=== PATIENT | female | born 1965 | race Caucasian/White ===

== ENCOUNTER 2017-01-28 05:50 | Day surgery (SDC) | payer MEDICAID ==
[2017-01-27 13:44] LABS: HEMATOCRIT 40.4 % (36.0-48.0); HEMOGLOBIN 13.8 g/dL (12-16); MCH 32.1 pg (26.0-34.0); MCHC 34.2 g/dL (31.0-37.0); MEAN PLATELET VOLUME 9.7 fL (7.4-10.4); RBC 4.3 10x6/uL (4.00-5.40); WBC 9.4 10x3/uL (4.8-10.8)
[~2017-01-28] VITALS: Ht 160 cm; Wt 77.1 kg
--- NOTE | ~2017-01-28 | OP ---
PATIENT NAME: LORETTA NICHOLSON MEDICAL RECORD: [id number] :61 LOCATION:D.OPS ADMISSION DATE: SURGEON: ANGI DIAZ MD DATE OF OPERATION: 01/28/2017 PREOPERATIVE DIAGNOSIS: Left dorsal ganglion cyst. POSTOPERATIVE DIAGNOSIS: Left dorsal ganglion cyst. PROCEDURE PERFORMED: Left dorsal ganglion cyst excision. SURGEON: Semaj Diaz MD ANESTHESIA: TIVA with local. Specimen was sent to pathology. CONDITION: The patient tolerated the procedure well, was transferred to the recovery room in stable condition. INDICATIONS: This is a 51-year-old female with a very prominent large dorsal ganglion cyst. This has gotten to the juncture where it has gotten so big and it has become painful and unsightly. She wanted to have it removed. We discussed risks, benefits, and alternatives. She understood and wished to proceed, specifically discussing recurrence, nerve, artery and vein injuries and tendon injuries. OPERATIVE REPORT: The patient was taken to the operating room and placed in supine position. TIVA anesthesia was obtained. Left upper extremity was prepped and draped in the normal fashion. After this was accomplished, her left wrist was confirmed to be the correct site. She received Ancef per protocol. I made a transverse incision over the cyst. This was taken down. Circumferential dissection was made following it down to the tail and also avoiding the extensor tendons. I was able to get it out nearly in its entirety ____ tail as it headed down into the wrist joint. I then copiously irrigated. Specimen was sent to pathology. I then closed with 2-0 Vicryl, then 3-0 Prolene, placed in a volar splint. She was awakened and transferred to the recovery room in stable condition having tolerated the procedure well. TRANSINT:[id number] Voice Confirmation ID: [id number] DOCUMENT ID: [id number] ANGI DIAZ MD CC: [id number] DICTATION DATE: 01/28/17928 NET C DEVELOPER: 01/28/17 1320 [facility] 01/28/17 [facility] [address] [place] [address]
[~2017-01-28 05:50] MED LIST: ASPIRIN325 MG PO; CELEXA40 MG PO; COREG6.25 MG PO; HYDROCODON-ACE1 EAC7 PO; ISOSORBIDE MONO30 M1 PO; LIPITOR40 MG PO; LISINOPRIL2.5 MG PO; NITROSTAT0.4 MG SL
[2017-01-28 06:36] VITALS: BP 112/69; Ht 160 cm; Wt 77.1 kg
[2017-01-28] MEDS ORDERED: HYDROCODONE-APA1 TAB PO (09:26)
--- NOTE | 2017-01-28 12:05 | NUR ---
1100-MEDICATED WITH ONE 10MG NORCO FOR HAND PAIN.
--- NOTE | 2017-01-28 12:53 | NUR ---
1130-ESCORTED VIA WHEELCHAIR TO PERSONAL CAR, LEFT WITH SISTER DRIVING.
== END 2017-01-28 11:30 | disposition home or self-care (01) ==
LOC: D.OPS 05:50 → D.PAN 07:00 → D.OPS 07:30 → D.PAN 08:00 → D.OPS 11:30
PROVIDERS: Anesthesiology
DX: M67.432 Ganglion, left wrist (principal); F17.200 Nicotine dependence, unspecified, uncomplicated; I25.10 Atherosclerotic heart disease of native coronary artery without angina pectoris; I10 Essential (primary) hypertension; K21.9 Gastro-esophageal reflux disease without esophagitis; J44.9 Chronic obstructive pulmonary disease, unspecified; I49.9 Cardiac arrhythmia, unspecified

== ENCOUNTER → 2018-06-20 12:31 | Outpatient (CLI) | payer MEDICAID ==
[2017-01-28 06:36] VITALS: BMI 30.1
[~2018-06-20 12:31] MED LIST changes: +HYDROCODONE-APA1 TAB PO
== END | disposition home or self-care (01) ==
LOC: D.US 08:00
DX: I71.4 Abdominal aortic aneurysm, without rupture (principal)

== ENCOUNTER → 2019-01-29 10:51 | Outpatient (CLI) | payer MEDICAID ==
[2017-01-28 06:36] VITALS: BMI 30.1
== END | disposition home or self-care (01) ==
LOC: D.US 01-08 13:30
PROVIDERS: ATTEND Internal Medicine Cardiovascular Disease
DX: I71.4 Abdominal aortic aneurysm, without rupture (principal)

== ENCOUNTER → 2019-08-06 11:22 | Outpatient (CLI) | payer MEDICARE ==
[2017-01-28 06:36] VITALS: BMI 30.1
== END | disposition home or self-care (01) ==
LOC: D.US 11:22
PROVIDERS: ATTEND Internal Medicine Cardiovascular Disease
DX: I71.4 Abdominal aortic aneurysm, without rupture (principal)

== ENCOUNTER → 2020-01-28 07:04 | Outpatient (CLI) | payer MEDICARE ==
[2017-01-28 06:36] VITALS: BMI 30.1
== END | disposition home or self-care (01) ==
LOC: D.US 07:04
PROVIDERS: ATTEND Internal Medicine Cardiovascular Disease
DX: I71.4 Abdominal aortic aneurysm, without rupture (principal)

== ENCOUNTER → 2020-08-04 09:38 | Outpatient (CLI) | payer MEDICARE ==
[2017-01-28 06:36] VITALS: BMI 30.1
== END | disposition home or self-care (01) ==
LOC: D.CT 09:38
PROVIDERS: ATTEND Internal Medicine Cardiovascular Disease
DX: I71.4 Abdominal aortic aneurysm, without rupture (principal)